=== PATIENT | male | born 1965 | race Caucasian/White ===

== ENCOUNTER 2020-10-24 18:55 | Emergency (ER) | payer OTHER ==
[~2020-10-24] VITALS: Ht 172.7 cm; Wt 101.6 kg
[2020-10-24 20:31] VITALS: BP 134/101
[2020-10-24] MEDS ORDERED: CLOB15CR5 TP (20:39)
== END 2020-10-24 21:31 | disposition home or self-care (01) ==
LOC: ER 19:06
DX: L40.9 Psoriasis, unspecified (principal)

== ENCOUNTER 2021-12-05 00:55 | Emergency (ER) | payer OTHER ==
[~2021-12-05] VITALS: Ht 177.8 cm; Wt 99.8 kg
[~2021-12-05 00:55] MED LIST: CLOB15CR5 TP
[2021-12-05] MEDS ORDERED: IPRATROPIUM NEB FS 0.5 MG/2.5 ML AMPUL.NEB ONE (01:10)
[2021-12-05] MEDS ORDERED: ALBUTEROL FS 2.5 MG/0.5 ML VIAL.NEB ONE ×2 (01:10→03:30)
--- NOTE | 2021-12-05 01:10 | NUR ---
TO ER BED 6. BIBS C/O SOB X 3 HRS [employer]. NOTED SATTING @ 89% ON RA. PT IS ALERT AND ORIENTED. AMBULATORY WITH STEADY GAIT. CONNECTED TO MONITOR. APPLIED SIMPLE MASK 10L NOW SATTING 99%. AWAITING MD DUTTON
[2021-12-05] MEDS ORDERED: DEXAMETHASONE SOD PHOSPHATE 10 MG/ML VIAL ONE (01:18)
[2021-12-05] MEDS ORDERED: DEXAMETHASONE SOD PHOSPHATE 4 MG/ML VIAL IM ONE (01:30)
[2021-12-05] MEDS ORDERED: IPRATROPIUM NEB FS 0.5 MG/2.5 ML AMPUL.NEB NEB ONE (01:30)
[2021-12-05] MEDS ORDERED: ALBUTEROL FS 2.5 MG/0.5 ML VIAL.NEB NEB ONE ×2 (01:30→03:30)
--- NOTE | 2021-12-05 03:22 | NUR ---
O2 SAT NOTED AT 90% ROOM AIR, MADE AWARE. PAGED RT
--- NOTE | 2021-12-05 03:30 | NUR ---
RT AT BEDSIDE
--- NOTE | 2021-12-05 05:36 | NUR ---
Patient discharged to home in stable condition. Written and verbal after care instructions given. Patient verbalizes understanding of instruction.
[2021-12-05 05:37] VITALS: BP 131/80
== END 2021-12-05 05:37 | disposition home or self-care (01) ==
LOC: ER 01:01
DX: J44.9 Chronic obstructive pulmonary disease, unspecified (principal); J98.01 Acute bronchospasm; F17.200 Nicotine dependence, unspecified, uncomplicated; Z79.899 Other long term (current) drug therapy
CPT/HCPCS: 99285; 71045; 99406; 96372; 94640 ×2; J1100

== ENCOUNTER 2022-03-15 10:27 | Inpatient (IN) | payer OTHER ==
[~2022-03-15] VITALS: Ht 177.8 cm; Wt 99.8 kg
--- NOTE | 2022-03-15 10:39 | NUR ---
DR FOURNIER AT BEDSIDE
--- NOTE | 2022-03-15 10:48 | NUR ---
PT WALKED IN TO THE ER C/O SOB X YESTERDAY. PT PLACED STRAIGHT TO BED, EXHIBITING TRIPOD POSITION, RETRACTION, AND NASAL FLARING. O2 SAT 83% ROOM AIR. PLACED ON 6L NC, SATURATION WENT UP TO 98%. PT DENIED CP AND HX OF ASTHMA. PT STATES "I DON'T KNOW WHAT CAUSED IT." IV ESTABLISHED AT RIGHT AC 18G. BLOOD DRAWN AND SENT TO LAB.
[2022-03-15] MEDS ORDERED: ONDANSETRON HCL/PF 4 MG/2 ML VIAL ONE (10:49)
[2022-03-15] MEDS ORDERED: MORPHINE SULFATE INJ 4 MG/ML DISP.SYRIN ONE (10:50)
[2022-03-15] MEDS ORDERED: MORPHINE SULFATE INJ 2 MG/ML DISP.SYRIN IV ONE (11:00)
[2022-03-15] MEDS ORDERED: ONDANSETRON HCL/PF 4 MG/2 ML VIAL IVP ONE (11:00)
[2022-03-15 11:12] LABS: BASOPHILS # (AUTO) 0.1 K/uL (0.0-0.2); BASOPHILS % (AUTO) 0.4 % (0.0-2.0); EOSINOPHILS % (AUTO) 3.2 % (0.0-6.0); HEMATOCRIT 50 % (39-51); HEMOGLOBIN 16.3 g/dL (13.5-17.5); LYMPHOCYTES # (AUTO) 2.4 K/uL (0.8-4.8); LYMPHOCYTES % (AUTO) 17.5 % (20.0-44.0); MEAN CORPUSCULAR HGB CONC 33 g/dl (31.0-36.0); MEAN CORPUSCULAR VOLUME 87 fL (80-96); MONOCYTES # (AUTO) 0.9 K/uL (0.1-1.30); MONOCYTES % (AUTO) 6.4 % (2.0-12.0); NEUTROPHILS # (AUTO) 9.9 K/uL (1.8-8.9); NEUTROPHILS % (AUTO) 72.5 % (43.0-81.0); PLATELET COUNT (AUTO) 276 K/uL (150-450); RED BLOOD CELL COUNT(AUTO) 5.75 MIL/uL (4.5-6.0); WHITE BLOOD COUNT (AUTO) 13.7 K/uL (4.3-11.0)
[2022-03-15 11:23] LABS: CARBON DIOXIDE 25 mmol/L (21-32); CHLORIDE 102 mmol/L (98-107); CREATININE 1.1 mg/dL (0.6-1.3); GLUCOSE 158 mg/dL (74-106); POTASSIUM 4.1 mmol/L (3.5-5.1); SODIUM SERUM 138 mmol/L (136-145); UREA NITROGEN, BLOOD 15 mg/dL (7-18)
[2022-03-15 11:29] LABS: ALANINE AMINOTRANSFERASE 26 U/L (12-78); ALBUMIN 4.3 g/dL (3.4-5.0); ALKALINE PHOSPHATASE 109 U/L (46-116); ASPARTATE AMINOTRANSFERASE 26 U/L (15-37); BILIRUBIN,DIRECT 0.2 mg/dL (0.0-0.2); BILIRUBIN,TOTAL 0.6 mg/dL (0.2-1.0); TOTAL PROTEIN, SERUM 9.4 g/dL (6.4-8.2)
--- NOTE | 2022-03-15 11:50 | NUR ---
DR VILLANUEVA CAME TO SEE PATIENT,WANTS A REPEAT TROP 4 HRS AFTER FIRST ONE,LAB CALLED,SPOKE WITH ZAIDA
[2022-03-15] MEDS ORDERED: ENOXAPARIN SODIUM 100 MG/ML DISP.SYRIN SQ ONE ×3 (12:00→12:19)
[2022-03-15] MEDS ORDERED: NITROGLYCERIN 0.4 MG/TAB BOTTLE SL PRN (12:00)
[2022-03-15] MEDS ORDERED: MAG HYDROX/AL HYDROX/SIMETH 30 ML UDC PO PRN (12:00)
[2022-03-15] MEDS ORDERED: MORPHINE SULFATE INJ 2 MG/ML DISP.SYRIN IV PRN (12:00)
[2022-03-15] MEDS ORDERED: MAGNESIUM HYDROXIDE 30 ML UDC PO PRN (12:00)
[2022-03-15] MEDS ORDERED: ASPIRIN 325 MG TABLET PO ONE (12:00)
[2022-03-15] MEDS ORDERED: ONDANSETRON HCL/PF 4 MG/2 ML VIAL IVP PRN (12:00)
[2022-03-15] MEDS ORDERED: ACETAMINOPHEN 325 MG TABLET PO PRN (12:00)
--- NOTE | 2022-03-15 12:07 | NUR ---
covid swab taken
[2022-03-15] MEDS ORDERED: ASPIRIN 325 MG TABLET ONE (12:19)
[2022-03-15 12:39] LABS: THYROID STIMULATING HORMONE 3.035 uIU/mL (0.358-3.74)
--- NOTE | 2022-03-15 12:46 | NUR ---
call from [employer] case worker, for clinical info. She will call [facility] if they want to transfer the patient since he is capitated to them given the current findings/results.
[2022-03-15] MEDS: IPRATROPIUM NEB FS 0.5 MG/2.5 ML AMPUL.NEB NEB PRN ×2 (14:41→21:21)
[2022-03-15] MEDS: ALBUTEROL FS 2.5 MG/0.5 ML VIAL.NEB NEB PRN ×2 (14:41→21:21)
[2022-03-15] MEDS ORDERED: IPRATROPIUM NEB FS 0.5 MG/2.5 ML AMPUL.NEB ONE (14:43)
[2022-03-15] MEDS ORDERED: ALBUTEROL FS 2.5 MG/0.5 ML VIAL.NEB ONE (14:43)
--- NOTE | 2022-03-15 14:59 | NUR ---
rt at bedside for breathing tx
--- NOTE | 2022-03-15 16:21 | NUR ---
urine sample obtained
--- NOTE | 2022-03-15 17:55 | NUR ---
room 314-2
--- NOTE | 2022-03-15 18:38 | NUR ---
REPORT GIVEN TO KATIE RUCKER.
[2022-03-15 20:00] VITALS: BP 128/91
[2022-03-15] MEDS: methylPREDNISolone SOD SUCC 125 MG/2ML VIAL IV SCH (20:29)
--- NOTE | 2022-03-15 20:46 | NUR ---
RN NOTE PT RECEIVED IN BED A/O X4 NOTED ON 6L VIA NASAL CANNULA SATURATING AT 96% NOTED PT WITH COUGHING. PT DENIES ANY CHEST PAIN AT THIS TIME. PT DOES STATE HE FEELS LIKE IT IS A LITTLE DIFFICULT TO BREATH SCHEDULED SOLU MEDROL GIVEN RT CALLED TO ASSESS PT. PT RT WILL ADMINISTER PRN BREATHING TREATMENT. PT PROVIDED WITH SNACKS AND INSTRUCTED ON HOW TO USE CALL LIGHT ORIENTED TO UNIT AND ROOM. PT. ON TELE MONITOR READING SR. PT NOTED WITH IV ACCESS ON THE RAC #18G S/L. ALL NEEDS ATTENDED TO AT THIS TIME. BILATERAL; SIDE RAILS UP FOR SAFETY.
--- NOTE | 2022-03-15 21:49 | NUR ---
RN NOTE PT O2 TITRATED DOWN TO 4L TOLERATING WELL O2 AT 96-97%. BREATHING TREATMENT ADMINISTERED.
[2022-03-16] VITALS: BP 158/83
[2022-03-16] MEDS: methylPREDNISolone SOD SUCC 125 MG/2ML VIAL IV SCH ×3 (01:35→12:23)
[2022-03-16 04:00] VITALS: BP 145/75
[2022-03-16 06:53] LABS: BASOPHILS % (AUTO) 0.1 % (0.0-2.0); HEMATOCRIT 44 % (39-51); HEMOGLOBIN 14.8 g/dL (13.5-17.5); LYMPHOCYTES # (AUTO) 0.6 K/uL (0.8-4.8); LYMPHOCYTES % (AUTO) 7.2 % (20.0-44.0); MEAN CORPUSCULAR HGB CONC 33 g/dl (31.0-36.0); MEAN CORPUSCULAR VOLUME 87 fL (80-96); MONOCYTES # (AUTO) 0.1 K/uL (0.1-1.30); MONOCYTES % (AUTO) 0.9 % (2.0-12.0); NEUTROPHILS # (AUTO) 8.3 K/uL (1.8-8.9); NEUTROPHILS % (AUTO) 91.8 % (43.0-81.0); PLATELET COUNT (AUTO) 250 K/uL (150-450); RED BLOOD CELL COUNT(AUTO) 5.11 MIL/uL (4.5-6.0); WHITE BLOOD COUNT (AUTO) 9.1 K/uL (4.3-11.0)
[2022-03-16 07:00] VITALS: BP 138/96
[2022-03-16 07:15] LABS: ALBUMIN 3.5 g/dL (3.4-5.0); BILIRUBIN,TOTAL 0.5 mg/dL (0.2-1.0); CALCIUM, SERUM 8.7 mg/dL (8.5-10.1); CREATININE 0.9 mg/dL (0.6-1.3); MAGNESIUM 2.1 mg/dL (1.8-2.4); PHOSPHORUS 3.3 mg/dL (2.5-4.9); POTASSIUM 4.2 mmol/L (3.5-5.1)
[2022-03-16] MEDS ORDERED: PANTOPRAZOLE 40 MG TABLET.DR PO SCH (07:30)
--- NOTE | 2022-03-16 07:40 | NUR ---
RN NOTES - CRITICAL LAB TROPONIN 106 REPORTED AT 0729 BY LAB, REPORTED TO DR BACON. TRENDING DOWN FROM 140 YESTERDAY.
[2022-03-16 08:00] VITALS: BP 138/96
[2022-03-16] MEDS ORDERED: ASPIRIN EC 81 MG TABLET.DR PO SCH (09:00)
--- NOTE | 2022-03-16 09:40 | NUR ---
RN NOTES PT DC FROM TELEMETRY AND TRANSFERRED TO [facility]. TELE BOX SURRENDERED TO TELEMETRY
[2022-03-16 10:57] LABS: CHOLESTEROL 165 mg/dL (<200); HDL CHOLESTEROL 44 mg/dL (40-60); LDL 116 mg/dL (0-99); TRIGLYCERIDES 42 mg/dL (30-150)
[2022-03-16] MEDS: ALBUTEROL FS 2.5 MG/0.5 ML VIAL.NEB NEB PRN (11:12)
[2022-03-16] MEDS: IPRATROPIUM NEB FS 0.5 MG/2.5 ML AMPUL.NEB NEB PRN (11:12)
[2022-03-16 12:00] VITALS: BP_SYST 118; BP_SYST 137; BP_DIAS 78; BP_DIAS 80
[2022-03-16] MEDS ORDERED: ALBU18HF2 INH (12:03)
[2022-03-16] MEDS ORDERED: LEVO750T46 PO (12:03)
[2022-03-16] MEDS ORDERED: PRED50TA PO (12:03)
--- NOTE | 2022-03-16 12:12 | NUR ---
PT AMBULATED, TOLERATED VERY WELL, OXYGEN TAKEN RESULTED TO 97. PT FOR DC
--- NOTE | 2022-03-16 13:43 | NUR ---
RN MS DISCHARGE NOTE PT DC TO HOME IN STABLE CONDITION. PT A/O X4, ABLE TO MAKE NEEDS KNOWN, NO SOB, NOT IN ANY SIGN OF RESPIRATORY DISTRESS, SKIN INTACT, DENIES ANY PAIN OR DISCOMFORT, ALL BELONGINGS ACCOUNTED FOR (CLOTHES) AND WORN. IV ACCESS LAC #G18 REMOVED WITH NO ACTIVE BLEEDING. DC INSTRUCTIONS GIVEN TO PT. PT REQUESTED TO CALL A FRIEND BEFORE LEAVING. PT ACCOMPANIED BY DC NURSE AND SOH GUARD UPON EXIT TO THE HOSPITAL. CHARGE NURSE AWARE OF THE DC. Addendum: 03/16/22 at 1400 by ISMAEL BOYD JR, RN PT LEFT THE UNIT AT 1340.
[2022-03-16 14:07] LABS: *SPE A/G RATIO 0.8 (0.7-1.7); *SPE ALPHA-1-GLOBULIN 0.4 g/dL (0.0-0.4); *SPE ALPHA-2-GLOBULIN 1.1 g/dL (0.4-1.0); *SPE BETA GLOBULIN 1.3 g/dL (0.7-1.3); *SPE M-SPIKE Not Observed g/dL (Not Observed)
== END 2022-03-16 14:36 | disposition home or self-care (01) | DRG 141 ==
LOC: ER 10:32 → TELE 18:07
PROVIDERS: ATTEND Internal Medicine
DX: J45.901 Unspecified asthma with (acute) exacerbation (principal); I21.A1 Myocardial infarction type 2; F15.10 Other stimulant abuse, uncomplicated; F14.10 Cocaine abuse, uncomplicated; F11.10 Opioid abuse, uncomplicated; F17.210 Nicotine dependence, cigarettes, uncomplicated; Z20.822 Contact with and (suspected) exposure to COVID-19
CPT/HCPCS: 36415; 71045-TC; 80048-TC; 80053-TC; 80061-TC; 80076-TC; 83735-TC; 84100-TC; 84155; 84165; 84439-TC; 84443-TC; 84484-TC; 85025-TC; 85652-TC; 87081-TC; 93307-TC; 94799-TC; C9803; G0378; J1650; J2270; J2405; J2930